=== PATIENT | female | born 2000 | race Caucasian/White ===

== ENCOUNTER → 2019-02-01 | Outpatient (CLI) | payer OTHER ==
--- NOTE | 2019-02-01 13:38 | Diagnostic Imaging Report ---
INDICATION: Injury to the left great toe. TIME OF EXAM: 01:22 p.m. FINDINGS: Three views of the left great toe were obtained. Alignment is normal. First metatarsal is intact. Proximal and distal phalanx of the great toe appears to be intact. No fractures are seen. IMPRESSION: No acute bony abnormality is detected. Called and faxed to IRLANDA Carty at 1:36 p.m. by hector (for [facility]) Dictated by: Dictated on workstation # [id number]
== END ==
LOC: RAD 13:07
PROVIDERS: ATTEND Nurse Practitioner Family
DX: S99.922A Unspecified injury of left foot, initial encounter (principal)
CPT/HCPCS: 73660